=== PATIENT | female | born 1940 | race Caucasian/White ===

== ENCOUNTER 2017-08-14 11:30 | Outpatient (RCR) | payer MEDICARE, OTHER, SELFPAY ==
--- NOTE | 2017-07-31 12:52 | HP.PTEVAL ---
Patient's Visit Information DARRELL ROMERO is a 76 year old F referred to Physical Therapy by Kathy DALE with a diagnosis of Unstable gait. Date of Evaluation: 07/31/17 Physical Therapist: Russell Hillman DPT, OC - Visit Plan Frequency: 2x /Week Duration: 2-4 Weeks Plan: 2x/week for 2 weeks to. 1. STM B feet and ankles and stretch gastroc/PF(10 minutes). 2. teach gym based stregnth for LE adn posture and give list for I in 4 visits(pt to join gym and continue on own past that point.(20-30 minutes). Monitor pateints use of orthotics for foot pain. - Subjective Subjective: Monthly visits to Dr. Chong. Has noticed difficulty in walking due to pain/ache in bottom of B feet. was told she did not have plantarfasciitis. Feels like a bruise in the heels and weakness on steps. Has to use R foot now on steps. L leg is weaker. 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 Got orthotics which seem to have helped as arches need support. Sleeps alot in position in bed and started stretching feet and legs b/c first step in morning is always painful and tough. (Ankle ROM). Sleep is OK. Activities at home are pretty normal. Hobbies include swimming and she can do that . Always been very active. [place] and wants to be stronger. - Pain B heel pain Pain Intensity (Out of 10): 0 Pain Intensity Range: 0, 8 Comment: switches feet - Objective Walks with some antalgia and lacking push off L after sitting in weigthing room, smooths out as she walks further. Transfers I. steps require rail and L is functionally weak compared to right. No tenderness today in either foot or ankle. Mildly swollen L foot with edema. Ankle aROM is WFL except DF which is -3 degree actively and -1 passively B in gastroc, able to get to neutral with knee bent. Coordination in L ankle inv/ev slightly worse than right. knee and hip strength 4-/5 B. Pes planus noted L >R. Strength at ankle 4/5 B all directions. Metatarsals move well and without pain. Balance is good and without obvious deficits outside of L weakness on steps today. - Balance Scores Functional Gait Assessment Score: 26 % Disability: 13.3400 - Goals Goal 1:: I approp HEP to strengthen LE and maximize ROM Goal Time Frame: 2-4 Weeks Goal 2:: Achiness in feet 1/10 at worst and manageable for at least a week without antalgia Goal Time Frame: 2-4 Weeks - Rehabilitation Potential Physical Therapy Diagnosis: Foot pain and unstable gait/LE weakness Rehabilitation Potential: Fair - Anticipated Interventions Patient/Client Instruction: Educate patient on: Condition, Plan of Care For the Purpose of:: To decrease pain, To increase ROM, To improve gait and locomotor functions Therapeutic Exercise to Include: Strength training, Flexibilty training, Passive ROM, Active ROM For the Purpose of:: To decrease pain, To increase ROM, To improve gait and locomotor functions, To improve health of tissue Manual Therapy Techniques to Include: Soft tissue mobilization For the Purpose of:: To decrease pain Thank you for the opportunity to evaluate your patient. For Medicare and Medicare HMO plans, please review the plan of care and approve it. It will need to be FAXED BACK to us at [phone] for Medicare purposes. Please let me know if there are questions or concerns regarding this plan of care. Physician Signature: Date:
--- NOTE | 2017-08-14 12:22 | HP.PTDCSUM ---
HP - PT D/C Summary It has been my pleasure to treat DARRELL ROMERO under orders from DR.NHORN Gustavo for the diagnosis of Unstable gait for a total of 5 visit(s). Discharge Date: 08/14/17 Please see the following information for a summary of their discharge status. - Subjective Subjective: A lot better adn stronger. Discomfort is not nearly as bead. stretching at home in am. Plans to continue strength in gym. Leading with left legs going up steps still alittle weak. 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 - Pain B heel pain Pain Intensity (Out of 10): 0 - Overall Improvement % Improvement: 75 - Objective Objective/Function: No antalgia in gait, can walk on toes and heels without pain today. - Goals Goal 1:: I approp HEP to strengthen LE and maximize ROM Goal Progress: Goal Met Goal 2:: Achiness in feet 1/10 at worst and manageable for at least a week without antalgia Goal Progress: Progressing - Plan Plan: D/C to gym strength and home stretches. - D/C Information Discharge Comments: Pt doing much better. Less apin and ready to workout on her own. If there are questions or concerns regarding this patient's physical therapy, please feel free to call me at [phone]. Thank you for the referral of this patient. Sincerely, Russell Hillman, DPT, OC
== END 2017-08-14 19:00 | disposition home or self-care (01) ==
LOC: PT 11:30
PROVIDERS: Family Provider Family Medicine; PCP Family Medicine; Visit Provider Podiatrist
DX: R53.1 Weakness (principal); R26.89 Other abnormalities of gait and mobility
CPT/HCPCS: 97110; 97140; 97162; 97530

== ENCOUNTER → 2018-02-23 16:23 | Outpatient (CLI) | payer MEDICARE, OTHER, SELFPAY ==
--- NOTE | 2018-02-23 16:27 | RAD_ITS ---
STUDY: X-RAY - FACIAL BONES REASON FOR STUDY: Female, 77 years old. Fall. Bruising. Pain. TECHNIQUE: 3 view(s) of the facial bones. COMPARISON: None. FINDINGS: Normal bilateral frontozygomatic and zygomatic-temporal arches. Normal bilateral medial and inferior orbital blanca. Normal bilateral orbits. There is no demonstrated ?blow out? fracture of the orbits. Normal visualized nasal bones. Normal anterior nasal spine. The remaining visualized osseous structures are normal. There is no demonstrated fracture. Normal visualized paranasal sinuses. RAD/Facial Bones min 3 Views IMPRESSION: No definite fracture. Electronically Signed: Hoang Andujar MD at 18:56 EDT , Service support ,
--- NOTE | 2018-02-23 16:27 | RAD_ITS ---
STUDY: X-RAY - ORBITS REASON FOR EXAM: Female, 77 years old. TECHNIQUE: 5 view(s) of the orbits were obtained. COMPARISON: None. FINDINGS: Normal bilateral orbits without a metallic orbital foreign body. No definite facial fractures. Grossly normal bony orbits. Normal visualized facial bones. Normal paranasal sinuses. The soft tissue structures are unremarkable. RAD/Orbits Min 4 Views IMPRESSION: No definite fractures. Electronically Signed: Hoang Andujar MD at 18:58 EDT , Service support ,
== END ==
PROVIDERS: Family Provider Family Medicine; PCP Family Medicine; Referring Provider Family Medicine; Visit Provider Family Medicine
DX: S00.83XA Contusion of other part of head, initial encounter (principal); X58.XXXA Exposure to other specified factors, initial encounter; Y93.9 Activity, unspecified; Y92.9 Unspecified place or not applicable; Y99.9 Unspecified external cause status
CPT/HCPCS: 70150; 70200

== ENCOUNTER → 2018-04-23 10:10 | Outpatient (CLI) | payer MEDICARE, OTHER, SELFPAY ==
--- NOTE | 2018-04-23 10:13 | BI_ITS ---
MAMMOGRAPHY - BILATERAL SCREENING REASON FOR EXAM: Female, 77 years old. Routine annual screening examination. PERTINENT HISTORY: Mother with breast cancer. TECHNIQUE: Digital bilateral breast christo (3D mammographic acquisition) in the CC and MLO projections. 2-D mediolateral oblique (MLO) and craniocaudad (CC) views of both breasts were obtained. CAD: Full Field Digital Mammography with Computer Added Detection was performed. COMPARISON: Comparison is made with prior study dated January 27, 2017 and January 16, 2016. FINDINGS: Breast Composition: The breasts are almost entirely fatty. There are no dominant masses or suspicious calcifications. Stable small benign-appearing bilateral axillary lymph nodes. No other significant abnormalities are identified. There has been no significant change since the prior study. BI/SCREENING MAMM (CAD), BILAT IMPRESSION: Stable bilateral screening mammogram. Yearly follow-up mammogram recommended. (A) ASSESSMENT CATEGORY: BIRADS Category 2: Benign. A letter regarding these results will be sent to the patient by the facility within 30 days. Approximately 10% of breast cancers are not detected by mammography. A normal mammogram should not delay biopsy of a clinically suspicious abnormality. [id number] Electronically Signed: Kilo Calabrese MD at 13:04 EST Tel [phone], Service support ,
--- OUTSIDE RECORDS SUMMARY | 2018-06-09 04:16 | XMS RPT_ITS ---
:1940 Author Organization [facility] Care Team Providers Name Role Phone Kathy Chong Attending Unavailable Arlette, Kathy Referring Unavailable Manny, Susie Primary Care Unavailable Manny, Susie Attending Unavailable Jojse, Susie Referring Unavailable Petriff, Susie Primary Care Unavailable Jolliff, Susie Attending Unavailable Jolliff, Susie Primary Care Unavailable PROBLEMS PROBLEMS DATE TYPE CONDITION / CODE ATTENDING STATUS SOURCE 08/21/2017 Unknown R53.1 - Weakness Kathy Chong Active Lynn / R53.1(ICD-10) [facility] Repository PROCEDURES PROCEDURES No Procedure Records FoundRESULTS RESULTS SCREENING MAMM (CAD), Observed: 04/23/2018 Status: F Source: [place] B[place] 10:13 AM [facility] REPOSITORY [facility] Imaging Services [address] [place] [address] SCREENING MAMM (CAD), BILAT MR#: [id number] Acct: [id number] Name: DARRELL ROMERO Rep #: [id number] : 1940 F 77 From: Kilo Calabrese MD PCP: Susie Bryant MD Status: REG CLI Study: SCREENING MAMM (CAD), BILAT Date of Exam: 04/23/18 Exam# [id number] Ordering Dr: Susie Bryant MD MAMMOGRAPHY - BILATERAL SCREENING REASON FOR EXAM: Female, 77 years old. Routine annual screening examination. PERTINENT HISTORY: Mother with breast cancer. TECHNIQUE: Digital bilateral breast christo (3D mammographic acquisition) in the CC and MLO projections. 2-D mediolateral oblique (MLO) and craniocaudad (CC) views of both breasts were obtained. CAD: Full Field Digital Mammography with Computer Added Detection was performed. COMPARISON: Comparison is made with prior study dated January 27, 2017 and January 16, 2016. FINDINGS: Breast Composition: The breasts are almost entirely fatty. There are no dominant masses or suspicious calcifications. Stable small benign-appearing bilateral axillary lymph nodes. No other significant abnormalities are identified. There has been no significant change since the prior study. BI/SCREENING MAMM (CAD), BILAT IMPRESSION: Stable bilateral screening mammogram. Yearly follow-up mammogram recommended. (A) ASSESSMENT CATEGORY: BIRADS Category 2: Benign. A letter regarding these results will be sent to the patient by the facility within 30 days. Approximately 10% of breast cancers are not detected by mammography. A normal mammogram should not delay biopsy of a clinically suspicious abnormality. [id number] Electronically Signed: Kilo Calabrese MD at 13:04 EST Tel [phone], Service support , CC: Susie Bryant MD Obstetrical Anesthesiologist: Signed FACIAL BONES MIN 3 Observed: 02/23/2018 Status: F Source: [place] VIEWS 4:31 PM [facility] REPOSITORY [facility] Imaging Services [address] [place] [address] Facial Bones min 3 Views MR#: [id number] Acct: [id number] Name: DARRELL ROMERO Rep #: [id number] : 1940 F 77 From: Hoang Andujar MD PCP: Susie Bryant MD Status: REG CLI Study: Facial Bones min 3 Views Date of Exam: 02/23/18 Exam# [id number] Ordering Dr: Susie Bryant MD STUDY: X-RAY - FACIAL BONES REASON FOR STUDY: Female, 77 years old. Fall. Bruising. Pain. TECHNIQUE: 3 view(s) of the facial bones. COMPARISON: None. FINDINGS: Normal bilateral frontozygomatic and zygomatic-temporal arches. Normal bilateral medial and inferior orbital blanca. Normal bilateral orbits. There is no demonstrated ?blow out? fracture of the orbits. Normal visualized nasal bones. Normal anterior nasal spine. The remaining visualized osseous structures are normal. There is no demonstrated fracture. Normal visualized paranasal sinuses. RAD/Facial Bones min 3 Views IMPRESSION: No definite fracture. Electronically Signed: Hoang Andujar MD at 18:56 EDT , Service support , CC: Susie Bryant MD Obstetrical Anesthesiologist: Signed ORBITS MIN 4 VIEWS Observed: 02/23/2018 Status: F Source: [place] 4:31 PM [facility] REPOSITORY [facility] Imaging Services [address] [place] [id number] Orbits Min 4 Views MR#: [id number] Acct: [id number] Name: DARRELL ROMERO Rep #: [id number] : 1940 F 77 From: Hoang Andujar MD PCP: Susie Bryant MD Status: REG CLI Study: Orbits Min 4 Views Date of Exam: 02/23/18 Exam# [id number] Ordering Dr: Susie Bryant MD STUDY: X-RAY - ORBITS REASON FOR EXAM: Female, 77 years old. TECHNIQUE: 5 view(s) of the orbits were obtained. COMPARISON: None. FINDINGS: Normal bilateral orbits without a metallic orbital foreign body. No definite facial fractures. Grossly normal bony orbits. Normal visualized facial bones. Normal paranasal sinuses. The soft tissue structures are unremarkable. RAD/Orbits Min 4 Views IMPRESSION: No definite fractures. Electronically Signed: Hoang Andujar MD at 18:58 EDT , Service support , CC: Susie Bryant MD Obstetrical Anesthesiologist: Signed PT D/C SUMMARY (1) Observed: 08/15/2017 Status: F Source: [place] 6:52 AM [facility] REPOSITORY [facility] Physical [facility] [place] [address] Fax REHABILITATION SERVICES DISCHARGE SUMMARY MR#: [id number] Acct: [id number] Name: DARRELL ROMERO Rep #: [id number] : 1940 77 From: Russell Hillman DPT, OCS, CSCS Referring DrJese: Kathy Chong DPArminda Status: REG RCR Insurance: MEDICARE PART A B [employer] HP - PT D/C Summary It has been my pleasure to treat DARRELL ROMERO under orders from Kathy Chong DR.WVBHAVYA for the diagnosis of Unstable gait for a total of 5 visit(s). Discharge Date: 08/14/17 Please see the following information for a summary of their discharge status. - Subjective Subjective: A lot better adn stronger. Discomfort is not nearly as bead. stretching at home in am. Plans to continue strength in gym. Leading with left legs going up steps still alittle weak. 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 - Pain B heel pain Pain Intensity (Out of 10): 0 - Overall Improvement % Improvement: 75 - Objective Objective/Function: No antalgia in gait, can walk on toes and heels without pain today. - Goals Goal 1:: I approp HEP to strengthen LE and maximize ROM Goal Progress: Goal Met Goal 2:: Achiness in feet 1/10 at worst and manageable for at least a week without antalgia Goal Progress: Progressing - Plan Plan: D/C to gym strength and home stretches. - D/C Information Discharge Comments: Pt doing much better. Less apin and ready to workout on her own. If there are questions or concerns regarding this patient's physical therapy, please feel free to call me at [phone]. Thank you for the referral of this patient. Sincerely, Russell Hillman DPT, OC <Electronically signed by Russell Hillman DPT, JOSE, CSCS> 08/15/17 0652 CC: Susie Bryant MD; Kathy Chong DPM EBG Signed INITAL EVALUATION (1) Observed: 08/01/2017 Status: F Source: [place] - PT 6:47 AM [facility] REPOSITORY [facility] Physical [facility] [address] [place] [address] Fax REHABILITATION SERVICES INITIAL EVALUATION MR#: [id number] Acct: [id number] Name: DARRELL ROMERO Rep #: [id number] : 1940 76 From: JOSE Main DPT, CSCS Referring DrJese: Kathy Chong DPM Status: REG RCR Insurance: MEDICARE PART A B AUST. [facility] Patient's Visit Information DARRELL ROMERO is a 76 year old F referred to Physical Therapy by Kathy DALE with a diagnosis of Unstable gait. Date of Evaluation: 07/31/17 Physical Therapist: Russell Hillman DPT, OC - Visit Plan Frequency: 2x /Week Duration: 2-4 Weeks Plan: 2x/week for 2 weeks to. 1. STM B feet and ankles and stretch gastroc/PF(10 minutes). 2. teach gym based stregnth for LE adn posture and give list for I in 4 visits(pt to join gym and continue on own past that point.(20-30 minutes). Monitor pateints use of orthotics for foot pain. - Subjective Subjective: Monthly visits to Dr. Chong. Has noticed difficulty in walking due to pain/ache in bottom of B feet. was told she did not have plantarfasciitis. Feels like a bruise in the heels and weakness on steps. Has to use R foot now on steps. L leg is weaker. 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 Got orthotics which seem to have helped as arches need support. Sleeps alot in position in bed and started stretching feet and legs b/c first step in morning is always painful and tough. (Ankle ROM). Sleep is OK. Activities at home are pretty normal. Hobbies include swimming and she can do that . Always been very active. [place] and wants to be stronger. - Pain B heel pain Pain Intensity (Out of 10): 0 Pain Intensity Range: 0, 8 Comment: switches feet - Objective Walks with some antalgia and lacking push off L after sitting in weigthing room, smooths out as she walks further. Transfers I. steps require rail and L is functionally weak compared to right. No tenderness today in either foot or ankle. Mildly swollen L foot with edema. Ankle aROM is WFL except DF which is -3 degree actively and -1 passively B in gastroc, able to get to neutral with knee bent. Coordination in L ankle inv/ev slightly worse than right. knee and hip strength 4-/5 B. Pes planus noted L >R. Strength at ankle 4/5 B all directions. Metatarsals move well and without pain. Balance is good and without obvious deficits outside of L weakness on steps today. - Balance Scores Functional Gait Assessment Score: 26 % Disability: 13.3400 - Goals Goal 1:: I approp HEP to strengthen LE and maximize ROM Goal Time Frame: 2-4 Weeks Goal 2:: Achiness in feet 1/10 at worst and manageable for at least a week without antalgia Goal Time Frame: 2-4 Weeks - Rehabilitation Potential Physical Therapy Diagnosis: Foot pain and unstable gait/LE weakness Rehabilitation Potential: Fair - Anticipated Interventions Patient/Client Instruction: Educate patient on: Condition, Plan of Care For the Purpose of:: To decrease pain, To increase ROM, To improve gait and locomotor functions Therapeutic Exercise to Include: Strength training, Flexibilty training, Passive ROM, Active ROM For the Purpose of:: To decrease pain, To increase ROM, To improve gait and locomotor functions, To improve health of tissue Manual Therapy Techniques to Include: Soft tissue mobilization For the Purpose of:: To decrease pain Thank you for the opportunity to evaluate your patient. For Medicare and Medicare HMO plans, please review the plan of care and approve it. It will need to be FAXED BACK to us at [phone] for Medicare purposes. Please let me know if there are questions or concerns regarding this plan of care. Physician Signature: Date: <Electronically signed by Russell Hillman DPT, OCS, [facility]> 08/01/17 0647 CC: Susie Bryant MD; Kathy Chong DPM EBG Signed For Medicare only, by signing this I certify the plan of care. Physicians Signature Date ALLERGIES ALLERGIES DATE TYPE / CODE NAME / CODE REACTION SEVERITY SOURCE 07/30/2013 Drug No Known Unknown Lynn [facility] Allergy/4160 Allergies/F00 [facility] [address](SNOMED [id number](RXNOR Repository CT) M) ENCOUNTERS ENCOUNTERS ADMIT/DISCHARGE ACCOUNT ADMITTING ENCOUNTER LOCATION SOURCE NUMBER CLASS 04/23/2018 [id number] Ambulatory Lynn [place] 9 [facility] ing:OPBI Repository 02/23/2018 [id number] Ambulatory [place] 7 [facility] ing:MTRAD Repository 08/14/2017/ [id number] Ambulatory [place] Lynn 8 3 [facility] ing:PT Repository PAYERS PAYERS ENCOUNTER GUARANTOR PAYER SUBSCRIBER SOURCE 04/23/2018 DARRELL Barrow Primary DARRELL Melo [id number] Insurance:MEDICARE REMINGTONDOB: [facility] MAHAMEDHRBLANCA, PART A BPolicy [id number] [address]Auu: Number: Repository [id number] (HP) Date:2018-01-27 04/23/2018 Secondary DARRELL Barrow [place] Insurance:AULTCAREPol REMINGTONDOB: Community icy Number: [id number] [id number] Repository Date:[id number] [address] [address]UG: 04/23/2018 Tertiary NOT GIVENUNK Lynn Insurance:SELF PAY [facility] Number: Effective Repository Date:2018-01-27 02/23/2018 DARRELL J Primary DARRELL Barrow Lynn [id number] Insurance:MEDICARE REMINGTONDOB: Community SERRA STSHREVE, PART A [facility] [id number] [facility] [address]Uzk: Number: Repository [id number] (HP) Date:2018-02-23 02/23/2018 Secondary DARRELL Barrow Lynn Insurance:AULTCAREPol REMINGTONDOB: Community icy Number: [id number] [facility] [id number] Repository Date:[id number] [address] [address]MS: 02/23/2018 Tertiary NOT GIVENUNK [place] Insurance:SELF PAY [facility] Number: Effective Repository Date:2018-02-23 08/14/2017 Darrell J Primary Darrell Barrow Lynn [id number] Insurance:MEDICARE RemingtonDOB: Community [place] St[place], PART A [facility] [id number] [facility] [address]Xmi: Number: Repository [id number] (HP) Date:2004-07-10 08/14/2017 Secondary Darrell Barrow [place] Insurance:AULTCAREPol RemingtonDOB: Community icy Number: [id number] [facility] [id number] Repository Date:[id number] [facility] [address] [place] [id number]: 08/14/2017 Tertiary NOT GIVENUNK Lynn Insurance:SELF PAY [facility] Number: Effective Repository Date:2017-07-28
== END ==
PROVIDERS: Family Provider Family Medicine; PCP Family Medicine; Visit Provider Family Medicine
DX: Z12.31 Encounter for screening mammogram for malignant neoplasm of breast (principal)
CPT/HCPCS: 77063; 77067

== ENCOUNTER → 2018-07-17 08:25 | Outpatient (CLI) | payer MEDICARE, OTHER, SELFPAY ==
[2018-07-17 10:18] LABS: Anion Gap 6 (5-15); BUN 15 mg/dL (7-18); BUN/Creat Ratio 18.2 RATIO (10-20); Calcium,Total 8.8 mg/dL (8.5-10.1); Chloride 107 mmol/L (98-107); Cholesterol 174 mg/dL (200); Creatinine, Serum 0.82 mg/dL (0.55-1.02); EST Glomerular Filtration Rate 71 mL/min (>60); Est Glom Filt Rate - Afr Amer 86 mL/min (>60); Glucose 83 mg/dL (74-106); High Density Lipoprotein 46 mg/dL; Potassium 4.1 mmol/L (3.5-5.1); Sodium Level 141 mmol/L (136-145); Thyroid Stim Hormone (TSH) 0.38 uIU/mL (0.358-3.74); Triglycerides 102 mg/dL; Very Low Density Lipoprotein 20 mg/dL (5-40)
== END ==
PROVIDERS: Family Provider Family Medicine; PCP Family Medicine; Referring Provider Nurse Practitioner Family; Visit Provider Nurse Practitioner Family
DX: Z00.00 Encounter for general adult medical examination without abnormal findings (principal); E03.9 Hypothyroidism, unspecified
CPT/HCPCS: 36415; 80048; 80061; 84443

== ENCOUNTER 2018-11-15 20:00 | Emergency (ER) | payer MEDICARE, OTHER, SELFPAY ==
[2018-11-15 20:01] VITALS: BP 200/106; PULSE 81; RESP 16; TEMP 36.6; O2SAT 97; BMI 30.1
--- NOTE | 2018-11-15 20:56 | ED.DCSUM_ITS ---
- ER Visit Summary Date of Service: 11/15/18 Chief Complaint: [Allergic reaction to bee sting] History of Present Illness: The patient is a 78 F [this to the emergency department with a sting to her left index finger that occurred approximately 4:30 PM. Patient states that she reached into her mailbox and a wasp stung her on the left index finger. Patient states that the hand started to swell almost immediately. Patient and subsequently developed some funny sensations in her chest and feeling like she was not breathing quite right so she decided to come in and get evaluated. Patient states that she had itching to her waist and her hands. She denies any lip or tongue swelling. He has had no vomiting. She denies any dizziness. Patient states most of her symptoms resolved other than swelling in her left hand currently. Physical Examination: [HEGENESIS-PERRCRYSTAL, MARYMI. Cranial nerves II through XII grossly intact. TMs clear. Mucous membranes moist. No adenopathy. No angioedema of the lips, tongue, or oropharynx. Cardiovascular-regular rate and rhythm without murmur or ectopy Lungs-clear to auscultation, chest wall stable without crepitus or subcu emphysema Abdomen-normoactive bowel sounds, soft, nontender, no rebound or rigidity, no peritoneal signs. Extremities-intact ?4, normal range of motion, normal pulses, atraumatic. Left hand-patient has diffuse edema of the entire hand. Mild faint erythema to both hands noted. No significant rashes.] Test Results: [None indicated] Emergency Department Course and Treatment: [Patient given prednisone 40 mg p.o. as well as Benadryl 25 mg p.o.] Treatment Plan: [Will be given a prescription for prednisone for 3 days and also advised to ice and elevate the left hand. Patient use Benadryl as needed for itching.] Disposition: [Discharged home stable condition.] Impression: [Allergic reaction to wasp sting] This note was generated with [employer] dictation software. It may contain incorrect words, spelling, and punctuation that were not noted in review of the chart prior to signing ED Disposition - Plan for ED Patient: Referrals: Susie Bryant MD [Primary Care Provider] -
--- NOTE | 2018-11-15 20:59 | ED.DEP ---
ED Disposition - Plan for ED Patient: Instructions: ALLERGIC REACTION, Insect (General) Prescriptions: Prednisone [Deltasone] 20 mg PO BID #6 tab Prescription Printed Referrals: Susie Bryant MD [Primary Care Provider] - 3-5 Days
[2018-11-15] MEDS: DiphenhydrAMINE 25 MG Capsule PO (21:04)
[2018-11-15] MEDS: predniSONE 20 MG Tablet 40 MG PO (21:04)
== END 2018-11-15 21:07 | disposition home or self-care (01) ==
LOC: ED 20:58
PROVIDERS: Emergency Provider Emergency Medicine; Family Provider Family Medicine; PCP Family Medicine
DX: T63.441A Toxic effect of venom of bees, accidental (unintentional), initial encounter (principal); M79.89 Other specified soft tissue disorders; L29.9 Pruritus, unspecified; R06.00 Dyspnea, unspecified; Y92.008 Other place in unspecified non-institutional (private) residence as the place of occurrence of the external cause
CPT/HCPCS: 99283

== ENCOUNTER → 2019-05-14 14:20 | Outpatient (CLI) | payer MEDICARE, SELFPAY ==
[2019-04-16 08:58] VITALS: BMI 30.1
--- NOTE | 2019-05-14 14:25 | BI_ITS ---
MAMMOGRAPHY - BILATERAL SCREENING 3-D TOMOSYNTHESIS REASON FOR EXAM: Female, 78 years old. BILAT SCREENING - FAM HX OF MOTHER @ AGE 48 - NO PREV SURG''S - RT MOLES MARKED - PERTINENT HISTORY: No significant family history. TECHNIQUE: 2-D mammograms and 3-D Tomosynthesis of the breast (s) were performed. CAD was performed. COMPARISON: April 23, 2018. FINDINGS: The breast composition is almost entirely fat. Scattered benign calcifications are seen. No dense spiculated masses or suspicious microcalcifications are identified. No architectural distortion is identified. There is no skin thickening or retraction. There has been no significant change since the prior study. BI/SCREEN MAMM (CAD) W/FELIPE BILAT IMPRESSION: No mammographic signs of malignancy. Routine yearly mammograms recommended. ASSESSMENT CATEGORY: BIRADS Category 2: Benign. A letter regarding these results will be sent to the patient by the facility within 30 days. FOLLOW UP RECOMMENDATION: Yearly follow up mammogram recommended. (A) Approximately 10% of breast cancers are not detected by mammography. A normal mammogram should not delay biopsy of a clinically suspicious abnormality. Electronically Signed: Wolfgang Marti MD at 16:08 EST , Service support ,
== END ==
PROVIDERS: Family Provider Family Medicine; PCP Family Medicine; Referring Provider Family Medicine; Visit Provider Family Medicine
DX: Z12.31 Encounter for screening mammogram for malignant neoplasm of breast (principal)
CPT/HCPCS: 77063; 77067

== ENCOUNTER → 2019-09-14 10:18 | Outpatient (CLI) | payer MEDICARE, SELFPAY ==
[2019-04-16 08:58] VITALS: BMI 30.1
[2019-09-14 13:14] LABS: Anion Gap 5 (5-15); BUN 18 mg/dL (7-18); BUN/Creat Ratio 19.6 RATIO (10-20); Calcium,Total 9.4 mg/dL (8.5-10.1); Chloride 107 mmol/L (98-107); Cholesterol 177 mg/dL (200); Creatinine, Serum 0.92 mg/dL (0.55-1.02); EST Glomerular Filtration Rate 63 mL/min (>60); Est Glom Filt Rate - Afr Amer 76 mL/min (>60); Glucose 91 mg/dL (74-106); High Density Lipoprotein 45 mg/dL; Potassium 4.1 mmol/L (3.5-5.1); Sodium Level 141 mmol/L (136-145); T4 Total, Thyroxin 12.6 ug/dL (4.8-13.9); Thyroid Stim Hormone (TSH) 0.56 uIU/mL (0.358-3.74); Triglycerides 99 mg/dL; Very Low Density Lipoprotein 20 mg/dL (5-40)
== END ==
PROVIDERS: PCP Family Medicine; Visit Provider Family Medicine
DX: I10 Essential (primary) hypertension (principal); E03.9 Hypothyroidism, unspecified
CPT/HCPCS: 36415; 80048; 80061; 84436; 84443

== ENCOUNTER 2019-11-23 14:12 | Observation (INO) | payer MEDICARE, SELFPAY ==
[2019-04-16 08:58] VITALS: BMI 30.1
[2019-11-23] VITALS (11 sets, daily range): BP systolic 184–215; BP diastolic 82–103; PULSE 65–77; RESP 14–20; TEMP 36.4–36.8; O2SAT 96–99; BMI 29.3; BMI 30.1
--- NOTE | 2019-11-23 14:14 | CT_ITS ---
STUDY: CT BRAIN WITHOUT CONTRAST REASON FOR EXAM: Female, 79 years old. CVA RADIATION DOSAGE (If Supplied By Facility): CTDIvol = ( 44.99 ) mGy, DLP = ( 745.49 ) mGycm TECHNIQUE: Transaxial CT imaging of the brain was performed without administration of intravenous contrast material. Individualized dose optimization techniques were used for this CT. COMPARISON: No relevant priors. FINDINGS: Normal soft tissue structures. Normal calvarium. Normal size ventricles and extra-axial spaces for the patient''s age. Findings suggestive of old ischemic change in the posterior aspect of the left parietal occipital lobe. Normal basal ganglia and thalami. Normal brainstem. Normal cerebellum. There is no intracranial hemorrhage. There are no findings of an acute ischemic infarction. Atherosclerotic calcification of the vertebral arteries and cavernous portions of the internal carotid arteries bilaterally. Normal visualized paranasal sinuses. CT/Brain/Head without Contrast IMPRESSION: No acute abnormality is seen. N.B. : The above information has been verbally conveyed by Kilo Calabrese to LISA SARABIA MD, on 11/23/2019 14:26:26 (ET). Electronically Signed: Kilo Calabrese, at 14:27 EDT , Service support ,
--- NOTE | 2019-11-23 14:14 | EKG12_ITS ---
Test Reason : NEURO SX Blood Pressure : / mmHG Vent. Rate : 066 BPM Atrial Rate : 076 BPM P-R Int : 000 ms QRS Dur : 082 ms QT Int : 442 ms P-R-T Axes : 000 099 015 degrees QTc Int : 463 ms Atrial fibrillation Rightward axis Septal infarct , age undetermined Abnormal ECG Confirmed by ADOLPH VALERA, KENZIE ([id number]), non linear editor ZURI COOPER ([id number]) on 11/25/2019 9:39:21 AM Referred By: DC Confirmed By:KENZIE FARFAN MD
--- NOTE | 2019-11-23 14:15 | CT_ITS ---
STUDY: CTA HEAD AND NECK WITH CONTRAST REASON FOR EXAM: Female, 79 years old. STROKE RADIATION DOSAGE (If Supplied By Facility): CTDIvol = ( 19.44 ) mGy, DLP = ( 689.68 ) mGycm TECHNIQUE: CT angiography was performed with a multi-detector CT scanner. Data acquisition was obtained from the skull base through the vertex following intravenous administration of 100 CC ISOVUE 370. MIP images were reconstructed from the axial data set. Post-processing of the angiographic images was performed, with multiplanar reformation and 3D reconstruction. Individualized dose optimization techniques were used for this CT. COMPARISON: No relevant priors. FINDINGS: Normal bilateral petrous carotid arteries. There is calcified plaque formation of the right cavernous carotid artery, without a cross-sectional luminal stenosis. There is calcified plaque formation of the left cavernous carotid artery, without a cross-sectional luminal stenosis. Normal right A1 segments of the anterior cerebral artery. Normal left A1 segments of the anterior cerebral artery. Normal intact anterior communicating artery (ACOM). Normal bilateral A2 segments of the anterior cerebral arteries. Normal right M1 and M2 segments of the middle cerebral arteries, with a normal M1 bifurcation. Normal left M1 and M2 segments of the middle cerebral arteries, with a normal M1 bifurcation. Normal right posterior communicating artery (PCOM). Normal left posterior communicating artery (PCOM). Normal bilateral vertebral arteries. Normal basilar artery with a normal basilar bifurcation. The visualized bilateral superior cerebellar (SCA) arteries are normal. Normal bilateral P1, P2 and visualized P3 segments of the posterior cerebral arteries. There is no demonstrated aneurysm of the [place]. AORTIC ARCH: There is atherosclerotic calcific plaque formation of the aortic arch and great vessels arising from the aortic arch, without a hemodynamically significant stenosis. There is a normal origin of the brachiocephalic, left common carotid, and left subclavian arteries. Atherosclerotic plaque at the origin of the left subclavian artery. Inhomogeneous enlargement of the thyroid gland slightly more prominent on the left side with a substernal extension. RIGHT CAROTID ARTERIES: Normal right common carotid artery (CCA). Normal right common carotid bulb. There is mild atherosclerotic plaque formation of the origin of the right internal carotid artery with less than 50% cross sectional diameter stenosis. Normal visualized cervical portion of the right internal carotid artery. Normal origin of the right external carotid artery (ECA). LEFT CAROTID ARTERIES: Normal left common carotid artery (CCA). Normal left common carotid bulb. There is mild atherosclerotic plaque formation of the origin of the left internal carotid artery with less than 50% cross sectional diameter stenosis. Normal visualized cervical portion of the left internal carotid artery. Normal origin of the left external carotid artery (ECA). VERTEBRAL ARTERIES: There is enhancement within the bilateral vertebral arteries with a small right vertebral artery, and a dominant left vertebral artery. CT/CTA Head AND Neck W/ Contrast IMPRESSION: Calcific plaque at the origins of the right and left internal carotid arteries with less than 50% narrowing due to calcific plaques. Small right vertebral artery. N.B. : The above information has been verbally conveyed by Kilo Calabrese to LISA SARABIA MD, on 11/23/2019 14:34:19 (ET). Electronically Signed: Kilo Calabrese, at 14:34 EDT , Service support ,
--- NOTE | 2019-11-23 14:20 | CM.ED ---
Social Work Stroke Alert No family present. Patient currently in CT. Per nursing staff patient alert and oriented. Nursing staff to update this social worker delinquency prevention if any social work needs arise. Romeo Romero MSW, SELINA
[2019-11-23 14:23] LABS: Absolute Lymphocyte Count 2.84 X10^3/uL (0.83-4.51); Absolute Neutrophil Count 3.6 X10^3/uL (2.0-7.7); Basophil# 0.04 X10^3/uL; Basophil% 0.5 % (0-1); Eosinophil# 0.32 X10^3/uL; Eosinophils% 4.2 % (0-5); Hematocrit 46.7 % (37-47); Hemoglobin 14.3 g/dL (12.0-15.0); Lymphocyte # 2.84 X10^3/ul (4.0); Lymphocyte % 37.1 % (19-41); Mean Corp Hgb Conc 30.6 g/dL (32-36); Mean Corpuscular Hgb 24.2 pg (27.0-32.0); Mean Corpuscular Volume 78.9 fL (81-99); Monocyte# 0.87 X10^3/uL; Monocyte% 11.4 % (0-10); NRBC Flagged by Analyzer 0 % (0-5); Neutrophil # 3.56 X10^3/uL (2.7-7.7); Neutrophil % 46.4 % (47-70); POSITIVE MORPHOLOGY YES; Platelet Count 260 K/mm3 (150-450); RBC Distribution Width CV 20.7 % (11.6-14.6); RBC Distribution Width SD 56.6 fl (35.1-43.9); Red Blood Count 5.92 M/mm3 (4.2-5.4); White Blood Count 7.7 K/mm3 (4.4-11.0)
[2019-11-23 14:24] LABS: Differential Indicated SCAN CRITERIA MET
--- NOTE | 2019-11-23 14:31 | ED.DCSUM_ITS ---
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 Her last known well was at 1:30 PM. She states that she tried to get up out of the chair but was unable to. Never she was able to get up her left leg was dragging. She never had this happen before in the past. Upon arrival to the emerge department symptoms are starting to improve. Denies any headache, vision changes. No issues with word finding. No other extremity is affected. She denies any loss of sensation. No chest pain, shortness of breath. No recent illnesses including any fever/chills. Denies any abdominal pain or back pain. No history of stroke. She is not on anticoagulation. Past Medical History - Allergies and Home Meds Allergies/Adverse Reactions: Allergies No Known Allergies Allergy (Verified 11/23/19 14:31) Prior records reviewed: Yes Past Medical History: - - Hypothyroidism, hypertension Smoking Status: Former smoker Drugs: None - Family History Maternal Family History: Family History (Last Updated 04/16/19 @ 08:58 by Claudette Olvera) Mother Breast cancer Sister Lung cancer Review of Systems All systems negative except as indicated General: Denies: Chills, Fever, Sweats Eyes: Denies: Visual changes - bilaterally, Diplopia ENT: Denies: Rhinorrhea Cardiovascular: Denies: Chest pain, Palpitations Respiratory: Denies: Dyspnea, Cough, Dyspnea on exertion Gastrointestinal: Denies: Abdominal pain, Nausea, Vomiting, Diarrhea Genitourinary: Denies: Dysuria, Hematuria, Frequency Musculoskeletal: Denies: Back pain, Extremity Pain Skin: Denies: Rash, Wounds Neurological: Reports: Weakness - Left leg. Denies: Headache, Numbness Physical Exam Vital Signs/Narrative: Vital Signs Temp Pulse Resp BP Pulse Ox 11/23/19 14:28 98.3 F 73 18 215/92 H 97 Inital Vital Signs reviewed: Yes - Hypertensive General: Well nourished, Well developed, No Acute Distress Head: Normocephalic, Atraumatic Eyes: Perrl, EOMI ENT: Moist mucous membranes, No rhinorrhea Neck: Supple, Nontender Cardiovascular: Regular rate, Regular rhythm, No murmurs Respiratory: No distress, CTA bilaterally, Chest nontender Abdomen: Soft, Nontender, Nondistended, Normal bowel sounds Back: Nontender, Normal Inspection Extremities: Nontender, No edema Skin: Normal color, No rash Neurological: Alert, Oriented x3, Cranial nerves II-XII grossly intact, Normal Strength, Normal Sensation, - - Initial NIH upon arrival to the emergency department is 0. Full muscle strength in all extremities. No loss of sensation. No discoordination. No issues with speech. No issues with vision.. Negative for: Left side facial droop, Right side facial droop Psychological: Normal affect, Normal Mood Diagnostic/Tx/Re-eval - Medical Decision Making Patient presents to the emergency department as a prehospital stroke alert. She had left leg weakness. This has since resolved upon arrival to the ED. Imaging being obtained to evaluate for acute CVA. Patient's NIH upon arrival is 0. She is not a TPA candidate due to having no focal neurological deficit at this time. CT scans did not show any evidence of acute CVA. No large vessel occlusion. Will bring to the hospital for further evaluation and management. Patient given aspirin down in the emergency department. Lab work did not show any significant acute abnormality. She does have a mild hyperglycemia. She is having some hypertensive episodes. Will monitor. She otherwise has been stable throughout emerge department stay. She is agreeable with this plan. ED Disposition - Plan for ED Patient: Disposition: [facility] Diagnosis: TIA (transient ischemic attack), Lower extremity weakness
[2019-11-23 14:32] LABS: Prothrombin Time (Protime)PT. 13.1 SECONDS (11.7-14.9)
[2019-11-23 14:33] LABS: Partial Thromboplast Time 26.4 Seconds (24.1-36.2)
--- NOTE | 2019-11-23 14:38 | CHAPLAIN ---
Type of Pastoral Visit ___ Initial Visit ___ Follow-up Visit ___ On-call Visit ___ General Patient Visit ___ Spiritual Assessment ___ Family Conference ___ Bereavement _x__ Rapid Response ___ Code Blue ___ Other (describe below) Pastoral Care Referral From ___ Patient ___ Family ___ Nurse ___ Physician ___ Search Engine Optimization Consultant ___ Clinical Research Scientist _x__ Other (describe below) Sacrament/Intervention ___ Active listening ___ Anointing ___ Tenriism ___ Bereavement ___ Communion ___ Tari exploration ___ ___ Life review ___ Prayer ___ Reconciliation ___ Sacrament of Sick ___ Supportive presence ___ Wedding _x__ Other (describe below) Pastoral Comments responded to stroke alert in ED; pt was already taken to CT; no family is present; staff indicate pt is alert and talking; SW was on scene and present for support; did not wait further
[2019-11-23 14:40] LABS: Anion Gap 6 (5-15); BUN 21 mg/dL (7-18); BUN/Creat Ratio 19.1 RATIO (10-20); Calcium,Total 9.5 mg/dL (8.5-10.1); Chloride 108 mmol/L (98-107); EST Glomerular Filtration Rate 51 mL/min (>60); Est Glom Filt Rate - Afr Amer 61 mL/min (>60); Estimated Creatinine Clearance 33.74 ml/min; Glucose 160 mg/dL (74-106); Potassium 3.6 mmol/L (3.5-5.1); Sodium Level 141 mmol/L (136-145)
[2019-11-23 14:51] LABS: Anisocytosis 1+; Macrocytosis RARE; Microcytosis RARE; Platelet Estimate ADEQUATE (ADEQ)
[2019-11-23] MEDS: Aspirin 325 MG Tablet PO (14:57)
--- NOTE | 2019-11-23 15:01 | RAD_ITS ---
STUDY: X-RAY CHEST REASON FOR EXAM: Female, 79 years old. Was sitting outside, daughter was in kitchen and heard pt yelling. Could not move left leg and also had left arm weakness. Last known well was 1320. Daughter reports had delay in speech at home, none now. TECHNIQUE: Single AP portable view of the chest. COMPARISON: None. FINDINGS: EKG electrodes are seen. Elevation of the right hemidiaphragm. The lungs are clear. There is no demonstrated pleural abnormality. There is mild cardiac enlargement. Normal mediastinum and felix. Normal visualized pulmonary arteries. There is atherosclerotic calcification of the aortic arch with tortuosity. Normal visualized thoracic spine. Normal visualized ribs, clavicles, and shoulders. There is no demonstrated abnormality of the visualized soft tissue structures of the upper abdomen. RAD/Chest 1 View IMPRESSION: No acute abnormality is seen. Mild cardiomegaly. Electronically Signed: Kilo Calabrese, at 15:33 EDT , Service support ,
--- NOTE | 2019-11-23 15:03 | HP.PCM_ITS ---
History of Present Illness Date of Admission: 11/23/19 Chief Complaint: left leg weakness The patient is a 79 year old F Was admitted through the ED on 11/23/2019 with a complaint of left lower extremity weakness. 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 She went grocery shopping at [facility] today and went and was sitting on her deck outside. She subsequently thought she had been in the sun too much and was getting up to go inside to enjoy the shade. However she realized that she was too weak to get up. After she grabbed the armrest to left herself up, she realized could not support herself on her left leg as it was weak and floppy. She also noticed that she could not keep her arms elevated for long as her left arm will suddenly drop down. She called her daughter who recommended that they called the squad because of concerns about a stroke. By the time the squad brought her to the hospital, patient symptoms are completely resolved. She says she is never experienced such symptoms before but 2 weeks ago she noticed that she was having some episodes of confusion and dizziness which apparently resolved. She denied any fever or chills, palpitations or dizziness, nausea vomiting or diarrhea. He states that about 8 years ago, when she went on holiday at [facility] in [place], she was sent to the hospital and told that she had a murmur. On account of this murmur, she was put on metoprolol 50 mg daily which she has been taking since. She denies any history of A. fib. Review of signs otherwise negative. In the ED, patient's vitals were significant for temperature of 98.3 with blood pressure of 214/82 and pulse rate of 73 as well as respiratory rate of 19. Pulse ox was 98% on room air. Chemistry was only significant for creatinine of 1.10 on initial troponin was negative. CBC showed hemoglobin of 14.3 with WBC of 7.7 and platelets of 360. EKG done showed A. fib with rate control and CT of the brain showed no acute intracranial abnormality. This x-ray also showed no acute cardiopulmonary process and only showed mild cardiomegaly. CTA of the head and neck showed a calcified plaque at the origins of the right and left internal carotid arteries with less than 50% narrowing due to calcified plaques and small right vertebral artery. She has been admitted to be managed for TIA. [] Past Medical History Medical History: Medical History (Last Updated 04/16/19 @ 08:56 by Claudette Olvera) Incontinence R32 HTN (hypertension) I10 Allergies No Known Allergies Allergy (Verified 11/23/19 14:31) Home Medications: Ambulatory Orders Medication Instructions Recorded Aspirin [Aspirin, Baby] 81 mg PO DAILY@0800 07/30/13 Levothyroxine [Synthroid] 125 mcg PO DAILY 07/30/13 Losartan Potassium [Cozaar] 50 mg PO DAILY 07/30/13 Metoprolol(XL)Succ [Toprol Xl] 50 mg PO DAILY 07/30/13 Surgical History: Surgical History (Last Updated 04/16/19 @ 08:56 by Claudette Olvera) History of cholecystectomy Z90.49 History of hysterectomy Z90.710 Surgical History: no surgical history Psychiatric History: No pertinent psych hx [employer] 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 Lives: Alone Smoking Status: Former smoker Alcohol: None Drugs: None - *Family History Maternal Family History: Family History (Last Updated 04/16/19 @ 08:58 by Claudette Olvera) Mother Breast cancer Sister Lung cancer Review of Systems Constitutional: Denies: Chills, Fever, Malaise, Weakness, Weight Change, Fatigue Eyes: Denies: Blurred vision HEENT: Denies: Head Aches, Sinus Congestion, Sinus Drainage Cardiovascular: Denies: Chest Pain, Light Headedness, Palpitations Respiratory: Denies: Cough, Shortness of Breath, Shortness of breath at rest, Shortness of breath upon exertion, Sputum production Gastrointestinal: Denies: Abdominal Pain, Nausea, Vomiting Genitourinary: Denies: Dysuria Musculoskeletal: Denies: Joint Pain, Joint Tenderness Skin: Denies: Rash, Wounds Neurological: Reports: Balance problems, Focal weakness. Denies: Slurred speech, Confusion, Difficulty swallowing, Headaches, Numbness, Tingling Psychiatric: Denies: Anxiety, Depression, Homicidal Ideations, Suicidal Ideations Hematologic/ Lymphatic: Denies: Easy Bruising, Easy Bleeding VTE Information - Inpt Only VTE Present on Admission: No VTE Pharm Prophylaxis ordered?: Yes - Physical Exam Vitals/I&O's: Vital Signs Temp Pulse Resp BP Pulse Ox 98.3 F 77 18 207/87 H 97 11/23/19 14:28 11/23/19 14:44 11/23/19 14:44 11/23/19 14:44 11/23/19 14:44 Oxygen Delivery Method Room Air Weight: 169 lb 12.095 oz Body Mass Index (BMI) 30.0 Finger Stick Blood Glucose 160 General: Alert, Oriented x3, Cooperative, No apparent distress HEENT: Atraumatic, PERRLA, EOMI, Normocephalic Oral: Moist Mucosa Neck: Supple, No JVD, Negative Carotid Bruits Lungs: Clear to auscultation, Normal air movement, No rhonchi, No wheeze, No rales Cardiovascular: No murmurs, Irregular Rate - afib, rate controlled Abdomen: Bowel Sounds Present, Soft, Non Tender, Non-Distended, No Hepato- splenomegaly Extremities: No clubbing, No cyanosis, No edema, Capillary Refill Less than 3 Seconds Skin: No rashes, No breakdown Musculoskeletal: No Tenderness to Palpation of Joints or Extremities Lymphatic: No Cervical, Supraclavicular, or Inguinal Adenopathy Neurological: Cranial nerves II-XII grossly intact, Neuro grossly intact, Motor Exam 5/5 strength throughout, - - NIHSS-0 Psych/Mental Status: Normal Affect, Appropriate, Alert and oriented to time, place, person, mood and affect Laboratory Results 11/23/19 13:50: WBC 7.7, RBC 5.92 H, Hgb 14.3, Hct 46.7, MCV 78.9 L, MCH 24.2 L, MCHC 30.6 L, RDW Std Deviation 56.6 H, RDW Coeff of Aiden 20.7 H, Plt Count 260, MPV 10.0, Immature Gran % (Auto) 0.400, Neut % (Auto) 46.4 L, Lymph % (Auto) 37.1, [place] % (Auto) 11.4 H, Eos % (Auto) 4.2, Baso % (Auto) 0.5, Absolute Neuts (auto) 3.6, Absolute Lymphs (auto) 2.84, Nucleated RBC % 0, Platelet Estimate ADEQUATE, Anisocytosis 1+, Microcytosis RARE, Macrocytosis RARE 11/23/19 13:50: PT 13.1, INR 1.0, APTT 26.4 11/23/19 13:50: Sodium 141, Potassium 3.6, Chloride 108 H, Carbon Dioxide 27.0, Anion Gap 6, BUN 21 H, Creatinine 1.10 H, Estim Creat Clear Calc 33.74, Est GFR (MDRD) Af Amer 61, Est GFR (MDRD) Non-Af 51 L, BUN/Creatinine Ratio 19.1, Glucose 160 H, Calcium 9.5, Troponin I < 0.[address] 11/23/19 14:14 IMPRESSION: No acute abnormality is seen. N.B. : The above information has been verbally conveyed by Kilo Calabrese to LISA SARABIA MD, on 11/23/2019 14:26:26 (ET). Electronically Signed: Kilo Calabrese, at 14:27 EDT , Service support , ADDENDUM: 11/23/19 1434 IMPRESSION: No acute abnormality is seen. N.B. : The above information has been verbally conveyed by Kilo Calabrese to LISA SARABIA MD, on 11/23/2019 14:26:26 (ET). Electronically Signed: Kilo Calabrese, at 14:27 EDT , Service support , Head/Neck CTA 11/23/19 14:15 IMPRESSION: Calcific plaque at the origins of the right and left internal carotid arteries with less than 50% narrowing due to calcific plaques. Small right vertebral artery. N.B. : The above information has been verbally conveyed by Kilo Calabrese to LISA SARABIA MD, on 11/23/2019 14:34:19 (ET). Electronically Signed: Kilo Calabrese, at 14:34 EDT , Service support , ADDENDUM: 11/23/19 1441 IMPRESSION: Calcific plaque at the origins of the right and left internal carotid arteries with less than 50% narrowing due to calcific plaques. Small right vertebral artery. N.B. : The above information has been verbally conveyed by Kilo Calabrese to LISA ASRABIA MD, on 11/23/2019 14:34:19 (ET). Electronically Signed: Kilo Guanakito, at 14:34 EDT , Service support , Chest X-Ray 11/23/19 15:01 IMPRESSION: No acute abnormality is seen. Mild cardiomegaly. Electronically Signed: Kilo Guanakito, at 15:33 EDT , Service support , Assessment/Plan All Active Problems (Last Updated 04/16/19 @ 08:56 by Claudette Olvera) Acute bronchitis (Acute) 79 y/o admitted with a complaint of weakness of her LLE and LUE which had resolved at time of presentation 1. TIA * CT of the brain showed no acute intracranial process and CTA of the head and neck showed calcified plaque at the origins of the right and left internal carotid arteries with less than 50% narrowing due to calcified plaques and a small vertebral artery on the right * Symptoms had fully resolved by time of presentation and NIH stroke scale is 0. * Admit to PCU with telemetry * EKG done showed A. fib. Patient states is on metoprolol 50 mg daily and has been for about 8 years due to heart murmur. She does not know exactly what heart murmur she had and denies ever knowing that she had A. fib. * Will get 2D echo. Check lipid panel. * For MRI of the brain tomorrow and 2D echo. * PT OT consults. * Fall precautions. * 2. Afib * As under 1. Currently rate controlled. * Metoprolol, will continue. * CHADVASC score is 6 * will start on eliquis; has no previous history of GI bleed * 2D echo ordered for tomorrow * will need follow up with GI * check TSH 3. Hypothyroidism * On Synthroid. Will check TSH. 4. Hypertension * On losartan and metoprolol. Blood pressure is markedly elevated at 214/82 at time of presentation. * Will give IV hydralazine and resume medication. Goal is for blood pressure of less than 06/10/1980 stroke is ruled out. * DVT prophylaxis: being started on eliquis o/a of afib and high CHADVASC score Note: * patient requested to be admitted under inpatient status; explained to her that per her presentation, she did not meet criteria for inpatient status and so will be admitted under observation status. * Patient was not happy about this as she was concerned about the financial ramifications of being admitted under observation status, but was understanding when I explained to her that she didnt meet inpatient criteria with her current presentation * CODE STATUS: DNRCCA * Patient counseled extensively about different types of CODE STATUS including full code, DNR CCA and DNR CCA. Patient elects to be DNRCCA. * Total hbsm-wx-avlu time 16 minutes. OBSV E&M: 25789 Initial observation care L2 Procedures: 14287 Advncd Care Plan 30 Min
--- NOTE | 2019-11-23 15:48 | NURSING ---
[facility]
[2019-11-23] MEDS: hydrALAZINE 20 MG/ML Vial 10 MG IV (16:16)
--- NOTE | 2019-11-23 16:45 | MRI_ITS ---
We are attempting to reach an attending provider to discuss findings. An addendum with communication details will be sent when the communication is complete. STUDY: MRI BRAIN WITHOUT CONTRAST REASON FOR EXAM: Female, 79 years old. LLE weakness,slurred speech, ataxia. LEFT arm dysfunction TECHNIQUE: Standardized multiplanar fat and water weighted pulse sequences were obtained. COMPARISON: Head CT dated November 23, 2019 FINDINGS: A small acute infarct is present in the chatman radiata region of the right parietal lobe. No additional acute infarcts are seen. There is mild cerebral atrophy with widening of the extra-axial spaces and ventricular dilatation. There are a limited number of small white matter hyperintensities, distributed throughout the deep white matter tracts of the cerebral hemispheres, consistent with mild chronic white matter ischemic changes. Normal T2* images of the brain without demonstrated susceptibility artifact. There is no demonstrated hemosiderin stain. Normal bilateral basal ganglia. Normal thalami. There is no extra-axial fluid accumulation. Normal flow voids within the major intracranial circulation suggesting patency by spin echo criteria. Normal sella turcica, pituitary gland, infundibular stalk, optic chiasm and hypothalamus. Normal tectal plate and pineal gland. Normal midbrain, whitley and medulla. Normal cerebellum. Normal basal cisterns. Normal bilateral temporal bones. Normal bilateral internal auditory canals. No demonstrated orbital abnormality, within the constraints of a routine brain study. Normal visualized paranasal sinuses. Normal calvarium and skull base. Normal visualized soft tissue structures. Normal visualized upper cervical spine. MRI/Brain without Contrast IMPRESSION: 1. Small acute infarct is present in the chatman radiata region of the right parietal lobe. 2. Involutional changes of the brain, as described above. Electronically Signed: Dejan Adams MD at 19:06 EDT , Service support ,
[2019-11-23] MEDS: LORazepam 2 MG/ML Syringe 0.5 MG IV (17:49)
[2019-11-23] MEDS: 0.9% Saline Lock 10 ML Syringe IV (17:49)
[2019-11-23 18:04] LABS: Hemoglobin A1c 5.6 % (3.8-5.6)
[2019-11-23 18:04] LABS: Cholesterol 195 mg/dL (200); High Density Lipoprotein 43 mg/dL; Thyroid Stim Hormone (TSH) 0.43 uIU/mL (0.358-3.74); Triglycerides 124 mg/dL; Very Low Density Lipoprotein 25 mg/dL (5-40)
[2019-11-23] MEDS: APIXABAN 2.5 MG TABLET PO ×2 (18:49→22:08)
[2019-11-23] MEDS: Clopidogrel Bisulfate 75 MG Tablet PO (22:04)
[2019-11-23] MEDS: Atorvastatin Calcium 40 MG Tablet PO (22:09)
--- NOTE | 2019-11-23 22:50 | NURSING ---
SOC physician consult taking place in room at this time.
[2019-11-24] VITALS (8 sets, daily range): BP systolic 155–195; BP diastolic 80–95; PULSE 55–80; RESP 12–18; TEMP 36.6–37; O2SAT 96–100; BMI 29.3
[2019-11-24 05:09] LABS: Absolute Lymphocyte Count 2.32 X10^3/uL (0.83-4.51); Absolute Neutrophil Count 4.3 X10^3/uL (2.0-7.7); Basophil# 0.05 X10^3/uL; Basophil% 0.6 % (0-1); Eosinophils% 4.7 % (0-5); Hematocrit 45.3 % (37-47); Hemoglobin 13.8 g/dL (12.0-15.0); Lymphocyte # 2.32 X10^3/ul (4.0); Lymphocyte % 27.5 % (19-41); Mean Corp Hgb Conc 30.5 g/dL (32-36); Mean Corpuscular Hgb 24.3 pg (27.0-32.0); Mean Corpuscular Volume 79.8 fL (81-99); Mean Platelet Vol. 9.6 fl (6.2-12.0); Monocyte# 1.32 X10^3/uL; Monocyte% 15.6 % (0-10); NRBC Flagged by Analyzer 0 % (0-5); Neutrophil # 4.34 X10^3/uL (2.7-7.7); Neutrophil % 51.4 % (47-70); POSITIVE MORPHOLOGY YES; Platelet Count 227 K/mm3 (150-450); RBC Distribution Width CV 21.5 % (11.6-14.6); RBC Distribution Width SD 58.7 fl (35.1-43.9); Red Blood Count 5.68 M/mm3 (4.2-5.4); White Blood Count 8.5 K/mm3 (4.4-11.0)
[2019-11-24 05:10] LABS: Differential Indicated SCAN CRITERIA MET
[2019-11-24 05:26] LABS: Anion Gap 7 (5-15); BUN 16 mg/dL (7-18); BUN/Creat Ratio 17.5 RATIO (10-20); Chloride 108 mmol/L (98-107); Cholesterol 174 mg/dL (200); Creatinine, Serum 0.92 mg/dL (0.55-1.02); EST Glomerular Filtration Rate 63 mL/min (>60); Est Glom Filt Rate - Afr Amer 76 mL/min (>60); Estimated Creatinine Clearance 40.34 ml/min; Glucose 99 mg/dL (74-106); High Density Lipoprotein 40 mg/dL; Potassium 3.7 mmol/L (3.5-5.1); Sodium Level 142 mmol/L (136-145); Triglycerides 77 mg/dL; Very Low Density Lipoprotein 15 mg/dL (5-40)
[2019-11-24] MEDS: Levothyroxine 125 MCG Tablet PO (05:29)
[2019-11-24 05:32] LABS: Differential Comment SCANNED; Hypochromasia RARE; Stomatocyte RARE; Target Cells RARE
--- NOTE | 2019-11-24 07:00 | ECHOD_ITS ---
Reason For Study: TIA/CVA Procedure This was a 2D Doppler, Color Flow transthoracic echocardiogram. Exam performed portable in patient room. Left Ventricle Normal LV size. Mild concentric left ventricular hypertrophy. The estimated ejection fraction is 65 %. No regional wall motion abnormalities noted. Right Ventricle Normal RV size. Normal systolic function. Atria The left atrium is moderately enlarged. Normal right atrium. Bubble contrast study negative for right to left interatrial shunt. Mitral Valve There is mild to moderate mitral annular calcification. Mild (1+) eccentric mitral valve insufficiency. Tricuspid Valve Normal tricuspid valve. Trivial tricuspid valve insufficiency. Aortic Valve Trisinus/trileaflet aortic valve. Mild focal aortic valve calcification. Trivial aortic valve insufficiency. Pulmonic Valve Normal pulmonic valve. Great Vessels Normal aortic root. The pulmonary artery is normal size. Normal inferior vena cava. Pericardium/Pleural No pericardial effusion. Medication Performed a rapid injection of agitated mix of 9 cc saline and 1cc air to assess for atrial septal defect. MMode/2D Measurements & Calculations LVIDd: 4.3 cm IVSd: 1.1 cm Ao root diam: 2.7 cm LVIDs: 2.8 cm LVPWd: 1.1 cm RVDd: 2.5 cm FS: 35.1 % LAV(MOD-bp): 100.1 ml LA A4 area: 28.0 cm2 LA dimension(2D): 4.4 cm LAV(MOD-bp) Indexed: 56.2 ml/m2 LAV(MOD-sp2): 81.5 ml LAV(MOD-sp4): 99.0 ml RA A4 area: 20.9 cm2 Time Measurements MV dec time: 0.16 sec Doppler Measurements & Calculations MV E max brian: 136.8 cm/sec Ao V2 max: 141.7 cm/sec LV V1 max: 74.7 cm/sec MV A max brian: 37.3 cm/sec Ao max P.1 mmHg LV V1 max P.2 mmHg MV E/A: 3.7 PA V2 max: 74.6 cm/sec TR max brian: 293.6 cm/sec TR max P.5 mmHg Interpretation Summary Normal LV size. Mild concentric left ventricular hypertrophy. The estimated ejection fraction is 65 %. The left atrium is moderately enlarged. Bubble contrast study negative for right to left interatrial shunt. There is mild to moderate mitral annular calcification. Mild (1+) eccentric mitral valve insufficiency. Ordering Physician: Kat Velazquez Referring Physician: Susie Bryant Performed By: Kym Castle, HARESH, RVT
[2019-11-24] MEDS: Metoprolol(XL)Succ 50 MG Tablet PO (09:36)
[2019-11-24] MEDS: Losartan Potassium 50 MG Tablet PO (09:36)
[2019-11-24] MEDS: APIXABAN 2.5 MG TABLET PO (09:36)
--- NOTE | 2019-11-24 09:36 | CASEMGMT ---
SW completed a PHQ 9 with patient as she had a Stroke or TIA. She scored a 0 which indicates no depression. Neris MARKS MSW
--- NOTE | 2019-11-24 11:20 | CASEMGMT ---
Dr Ruffin called Eliquis into pt's pharmacy and states pt's co-pay is over $200/month at this time. Pt updated by Dr. Ruffin and provided with Eliquis 30 day free trial card at this time. Linda BOUCHER CM
--- NOTE | 2019-11-24 13:05 | DCINST_ITS ---
- Discharge Diagnoses Current Active Problems: Current Active and Chronic Problems (Last Updated 04/16/19 @ 08:56 by Claudette Olvera) TIA (transient ischemic attack) (Acute) Lower extremity weakness (Acute) You will use the following diet at home:: No restrictions Your food should be the consistency of: Regular Your liquids should be the consistency of: Regular/Thin Discharge Activity: Return to Normal Activity Additional Instructions: no aspirin use, Alleve use or Ibuprofen use. any sign of abnormal bleeding in urine, stool, or elseware call your physician Allergies/Adverse Reactions: Allergies No Known Allergies Allergy (Verified 11/23/19 14:31) Medications to take at Discharge Levothyroxine [Synthroid] 125 mcg PO DAILY 07/30/13 Losartan Potassium [Cozaar] 50 mg PO DAILY 07/30/13 Metoprolol(XL)Succ [Toprol Xl (Beta Hilary)] 50 mg PO DAILY 07/30/13 Apixaban [Eliquis] 5 mg PO BID #60 tab 11/24/19 Atorvastatin Calcium [Lipitor] 40 mg PO DAILY #30 tab 11/24/19 Clopidogrel Bisulfate [Plavix] 75 mg PO DAILY #30 tab 11/24/19 The following prescriptions were given: Apixaban [Eliquis] 5 mg PO BID #60 tab Atorvastatin Calcium [Lipitor] 40 mg PO DAILY #30 tab Clopidogrel Bisulfate [Plavix] 75 mg PO DAILY #30 tab Primary Care Physician: Susie Bryant MD [Primary Care Provider] - Please follow up with your Primary Care Physician in: in the next 7 days Test Results: Test results from this visit will be discussed in further detail at your follow- up appointment, if applicable. Please Follow Up With: Bubba Hairston MD When: as directed
--- NOTE | 2019-11-24 14:46 | PHA.DC.MC ---
Pharmacy Service has performed discharge medication reconciliation and counseling for this patient. 1. APIXABAN 5MG PO BID 2. ATORVASTATIN 40MG PO DAILY 3. CLOPIDOGREL 75MG PO DAILY The patient's discharge medication list was reviewed for discrepancies and discrepancies were resolved. Home Medications Levothyroxine [Synthroid] 125 mcg PO DAILY 07/30/13 Losartan Potassium [Cozaar] 50 mg PO DAILY 07/30/13 Metoprolol(XL)Succ [Toprol Xl (Beta Hilary)] 50 mg PO DAILY 07/30/13 Apixaban [Eliquis] 5 mg PO BID #60 tab 11/24/19 Atorvastatin Calcium [Lipitor] 40 mg PO DAILY #30 tab 11/24/19 Clopidogrel Bisulfate [Plavix] 75 mg PO DAILY #30 tab 11/24/19 The patient was counseled on the following discharge medications and changes in medications for homegoing were reviewed. The Reason for Use, instructions for use, and potential side effects were reviewed for all new medications. The patient's questions regarding all of their medications were answered. The patient was able to verbally demonstrate an understanding of their discharge medications. Patient counseled by pharmacy resource tech, Raj
--- NOTE | 2019-11-25 08:43 | DS.PCM_ITS ---
Discharge Date and Diagnosis Date of Admission: 11/23/19 Date of Discharge: 11/24/19 - Primary Discharge Diagnosis Acute Problems: #1 acute ischemic stroke chatman radiata region of the right parietal lobe #2 new onset atrial fibrillation #3 Essential hypertension #4 hypothyroidism Hospital Course and Treatment Operations: None Procedures: 2-D Echocardiogram Summary of Care Provided: The patient is a 79 year old F was seen in the emergency room at [facility] with a chief complaint of left leg weakness. She denied any speech or visual disturbances. NIH score when the patient presented to the emergency room was 0. Patient was felt not to be a TPA candidate due to the fact she was not having any focal neurological deficits. CT scan of the brain was performed which showed no acute CVA, head and neck CTA was unremarkable. Patient was noted to be hypertensive. Upon examination by the hospitalist, it was noted that the patient was in atrial fibrillation which was a new rhythm for the patient. Patient was placed in observation status on PCU, neurologic consultation via tele-neurology was performed, it was recommended the patient be placed on Plavix and Eliquis, echocardiogram was performed which showed no abnormalities. I contacted cardiology for the patient to follow-up with Dr. Hairston as an outpatient. Patient was seen by PT, OT, and speech therapy who did not feel that the patient needed any outpatient therapy. On 11/24/2019, patient was seen and examined: On examination she appeared in good health and spirits, she does not appear to be in any distress. Vital signs as documented. Skin warm and dry and without overt rashes. Neck without JVD, thyroid appears normal, trachea is midline, neck is supple. Lungs clear, normal air movement was noted. Heart exam notable for regular rhythm, normal sounds and absence of murmurs, rubs or gallops. Abdomen unremarkable and without evidence of organomegaly, masses, or abdominal aortic enlargement, bowel sounds are present in all 4 quadrants, no abdominal tenderness was noted. Extremities nonedematous, no cyanosis was noted, no clubbing was noted. Neuro: Cranial nerves II through XII are grossly intact, no focal motor deficits were noted, sensation to light touch and pinprick is intact, motor exam 5/5 throughout. Psych: Patient is alert and oriented x3, she does not appear anxious or depressed, she does not appear agitated. Patient was discharged home in stable condition on 11/24/2019.. - Physical Exam Vitals/I&O's: Vital Signs Temp Pulse Resp BP Pulse Ox 98.2 F 73 18 195/88 H 98 11/24/19 12:52 11/24/19 12:52 11/24/19 12:52 11/24/19 12:52 11/24/19 12:52 Oxygen Delivery Method Room Air Weight: 75.1 kg Body Mass Index (BMI) 29.3 Finger Stick Blood Glucose 160 Intake and Output for Last 24 Hours 11/23/19 11/24/19 11/25/19 23:59 23:59 23:59 Intake Total 220 / 220 360 / 360 Balance 220 / 220 360 / 360 Discharge Activity: Return to Normal Activity Home Medications: Medications to take at Discharge Levothyroxine [Synthroid] 125 mcg PO DAILY 07/30/13 Losartan Potassium [Cozaar] 50 mg PO DAILY 07/30/13 Metoprolol(XL)Succ [Toprol Xl (Beta Hilary)] 50 mg PO DAILY 07/30/13 Apixaban [Eliquis] 5 mg PO BID #60 tab 11/24/19 Atorvastatin Calcium [Lipitor] 40 mg PO DAILY #30 tab 11/24/19 Clopidogrel Bisulfate [Plavix] 75 mg PO DAILY #30 tab 11/24/19 Following Prescrptions Were Given to Patient: Apixaban [Eliquis] 5 mg PO BID #60 tab Atorvastatin Calcium [Lipitor] 40 mg PO DAILY #30 tab Clopidogrel Bisulfate [Plavix] 75 mg PO DAILY #30 tab Primary Care Physician: Susie Bryant MD [Primary Care Provider] - Please follow up with your Primary Care Physician in: in the next 7 days Please Follow Up With: Bubba Hairston MD When: as directed Disposition: Home Minutes spent on discharge:: 30 Patient Condition:: Stable Medical Necessity - Tobacco Use Smoking Status: Former smoker Tobacco Use: Non-smoker Meaningful Use Info Meaningful Use Diagnoses (Choose all that apply): Ischemic CVA - CVA Therapy Assessed for PT,OT and/or ST?: Yes - Ischemic Stroke Antithrombotic order at d/c?: Yes Dx of Atrial fib/flutter?: Yes Anticoagulant at discharge?: Yes Statins at discharge?: Yes Primary Dx Acute Ischemic CVA?: Yes IV tPA ordered during stay?: No Reason IV t-PA not ordered: Treatment not Indicated Inpatient E&M: 08693 Subs Hosp L2
== END 2019-11-24 13:08 | disposition home or self-care (01) ==
LOC: ED 15:11 → PCU 15:50
PROVIDERS: Admitting Provider Student in an Organized Health Care Education/Training Program; Emergency Provider Emergency Medicine; PCP Family Medicine; Visit Provider Internal Medicine
DX: I63.89 Other cerebral infarction (principal); I48.91 Unspecified atrial fibrillation; I10 Essential (primary) hypertension; E03.9 Hypothyroidism, unspecified; R29.700 NIHSS score 0; R53.1 Weakness; R32 Unspecified urinary incontinence; Z79.899 Other long term (current) drug therapy; Z79.82 Long term (current) use of aspirin; Z87.891 Personal history of nicotine dependence; R47.81 Slurred speech
CPT/HCPCS: 36415; 70450; 70496; 70498; 70551; 71045; 80048; 80061; 83036; 84443; 84484; 85025; 85610; 85730; 92523; 93005; 93306; 94762; 96374; 96375; 97162; 97166; 97802; 99218; 99285; Q9967; A4216; G0378

== ENCOUNTER 2020-05-20 22:25 | Emergency (ER) | payer MEDICARE, SELFPAY ==
[2019-12-08 12:39] VITALS: BMI 29.7
[2020-05-20 22:25] VITALS: BP 250/103; PULSE 65; RESP 18; TEMP 36; O2SAT 95; BMI 30.8
[2020-05-20 22:33] VITALS: BP 226/74; PULSE 82; RESP 18; O2SAT 97
--- NOTE | 2020-05-20 22:50 | EKG12_ITS ---
Test Reason : GEN ILL Blood Pressure : / mmHG Vent. Rate : 059 BPM Atrial Rate : 111 BPM P-R Int : 000 ms QRS Dur : 082 ms QT Int : 458 ms P-R-T Axes : 000 097 021 degrees QTc Int : 453 ms Atrial fibrillation with slow ventricular response Rightward axis Septal infarct , age undetermined Abnormal ECG Confirmed by ADOLPH VALERA, KENZIE ([id number]), newspaper or periodical editor ZURI COOPER ([id number]) on 05/22/2020 10:29:35 AM Referred By: AUGUSTA Confirmed By:KENZIE FARFAN MD
--- NOTE | 2020-05-20 22:51 | CT_ITS ---
STUDY: CT BRAIN WITHOUT CONTRAST REASON FOR EXAM: Female, 79 years old. INTERMITTENT LUND/ELEV HTN/Hx of TIA 11/2019 RADIATION DOSAGE (If Supplied By Facility): CTDIvol = ( 44.99 ) mGy, DLP = ( 779.24 ) mGycm TECHNIQUE: Transaxial CT imaging of the brain was performed without administration of intravenous contrast material. Individualized dose optimization techniques were used for this CT. COMPARISON: 11/23/2019 FINDINGS: Normal soft tissue structures. Normal calvarium. There is mild cerebral atrophy with widening of the extra-axial spaces and ventricular dilatation. Carotid and vertebral artery calcifications. There are areas of decreased attenuation within the white matter tracts of the supratentorial brain, consistent with microvascular disease changes. Normal basal ganglia and thalami. Normal brainstem. Normal cerebellum. There is no intracranial hemorrhage. There are no findings of an acute ischemic infarction. Normal visualized paranasal sinuses. CT/Brain/Head without Contrast IMPRESSION: Chronic involutional and white matter changes are present. No acute territorial infarct or intracranial hemorrhage is seen. If patient''s symptomology persists or there is continuing clinical concern MRI or follow-up CT scan can be performed. Electronically Signed: Goyo Arrieta, at 23:31 EST Tel , Service support ,
--- NOTE | 2020-05-20 22:52 | ED.VIS.GEN ---
History of Present Illness Chief Complaint: General Illness Informant: Patient Onset: Hours - 2-3 Context: Gradual Onset Timing: Continuous Quality: malaise, nausea Location: generally Current Severity: Mild Maximum Severity: Moderate Worsened by: nothing Relieved by: nothing Associated Symptoms: lightheaded Narrative: Patient has had intermittent blood pressure readings over 200 for the past 2 months or so. She had medication changes 2 days ago, the medicines that she is on were doubled and she is due to go back to her doctor next week for a recheck. These blood pressures were found incidentally. Tonight she felt poorly, lightheaded, nauseated, and just poor. She denies any chest pain, shortness of breath. She notes that her pulse has been irregular off and on for years, she has a known history of A. fib and is on Eliquis, but she denies feeling any palpitations or racing associated with any of the symptoms tonight. She has been having leg swelling for the past 3 weeks which is relatively new for her. She denies any changes in urination. She denies any recent illness. States last time she had an episode like this was when she was here with a stroke, however she had left-sided neurologic deficits at that time. She did not have any residual stroke symptoms/deficits that have persisted. - Past Medical History (1) CVA (cerebral vascular accident) Status: Chronic Comment: Right lacunar infarct (2) Essential (primary) hypertension Status: Chronic (3) Paroxysmal atrial fibrillation Status: Chronic Past Medical History - Allergies and Home Meds Allergies/Adverse Reactions: Allergies No Known Allergies Allergy (Verified 05/20/20 22:30) Primary Care Physician: Susie Bryant MD [Primary Care Provider] - Keep Jennifer appointment Surgical History: no surgical history Smoking Status: Former smoker Review of Systems General: Reports: Malaise. Denies: Chills, Fever, Sweats Eyes: Denies: Visual changes - bilaterally, Diplopia ENT: Reports: - - Ears popping more often than usual. Denies: Rhinorrhea, Sore throat Cardiovascular: Denies: Chest pain, Palpitations Respiratory: Denies: Dyspnea, Cough, Dyspnea on exertion Gastrointestinal: Reports: Nausea. Denies: Abdominal pain, Vomiting, Diarrhea, Melena, Hematochezia Genitourinary: Denies: Dysuria, Hematuria, Frequency Musculoskeletal: Reports: Swelling. Denies: Back pain, Extremity Pain Skin: Denies: Rash, Wounds Neurological: Reports: Headache - not a headache, but a ping-ping in left head off and on this past week, - - No vertigo or disequilibrium.. Denies: Weakness, Numbness Physical Exam Vital Signs/Narrative: Vital Signs Temp Pulse Resp BP Pulse Ox 05/20/20 22:33 82 18 226/74 H 97 05/20/20 22:25 96.8 F L 65 18 250/103 H 95 Inital Vital Signs reviewed: Yes General: Well nourished, Well developed, No Acute Distress Head: Normocephalic, Atraumatic Eyes: Perrl, EOMI ENT: Moist mucous membranes, No rhinorrhea, TM's clear Neck: Supple, Nontender, No JVD Cardiovascular: Regular rate, Regular rhythm, No murmurs Respiratory: No distress, CTA bilaterally, Chest nontender Abdomen: Soft, Nontender, Nondistended, Normal bowel sounds Back: Nontender, Normal Inspection Extremities: Nontender, Edema - 2+ BLE to knees w/o tenderness Skin: Normal color, No rash, No Trauma Neurological: Alert, Oriented x3, Cranial nerves II-XII grossly intact, Normal Strength, Normal Sensation, - - nml FTN and HTS bilat, correct questions; NIHSS - 0 Psychological: Normal affect, Normal Mood Diagnostic/Tx/Re-eval Impressions Brain CT 05/20/20 22:51 IMPRESSION: Chronic involutional and white matter changes are present. No acute territorial infarct or intracranial hemorrhage is seen. If patient''s symptomology persists or there is continuing clinical concern MRI or follow-up CT scan can be performed. Electronically Signed: Goyo Arrieta, at 23:31 EST Tel , Service support , 05/20/20 22:51 CT Head [Brain/Head without Contrast] [CT] Stat Laboratory Tests 05/20/20 05/20/20 05/20/20 Range/Units 23:45 22:30 22:30 WBC 8.0 (4.4-11.0) K/mm3 RBC 5.63 H (4.2-5.4) M/mm3 Hgb 15.2 H (12.0-15.0) g/dL Hct 49.3 H (37-47) % MCV 87.6 (81-99) fL MCH 27.0 (27.0-32.0) pg MCHC 30.8 L (32-36) g/dL RDW Std Deviation 47.9 H (35.1-43.9) fl RDW Coeff of Aiden 14.9 H (11.6-14.6) % Plt Count 274 (150-450) K/mm3 MPV 10.7 (6.2-12.0) fl Immature Gran % (Auto) 1.400 H (0.0-0.9) % Neut % (Auto) 46.1 L (47-70) % Lymph % (Auto) 33.0 (19-41) % [place] % (Auto) 15.7 H (0-10) % Eos % (Auto) 3.4 (0-5) % Baso % (Auto) 0.4 (0-1) % Absolute Neuts (auto) 3.7 (2.0-7.7) X10^3/uL Absolute Lymphs (auto) 2.65 (0.83-4.51) X10^3/uL Nucleated RBC % 0 (0-5) % Sodium 143 (136-145) mmol/L Potassium 3.8 (3.5-5.1) mmol/L Chloride 106 (98-107) mmol/L Carbon Dioxide 31.0 (21.0-32.0) mmol/L Anion Gap 6 (5-15) BUN 18 (7-18) mg/dL Creatinine 1.03 H (0.55-1.02) mg/dL Estim Creat Clear Calc 36.04 ml/min Est GFR (MDRD) Af Amer 66 (>60) mL/min Est GFR (MDRD) Non-Af 55 L (>60) mL/min BUN/Creatinine Ratio 17.5 (10-20) RATIO Glucose 119 H (74-106) mg/dL Calcium 9.3 (8.5-10.1) mg/dL Troponin I < 0.015 (<0.045) ng/mL Urine Color Yellow (Yellow) Urine Clarity Clear (Clear) Urine pH 7.0 (5.0 - 8.0) Ur Specific [place] 1.010 (1.002-1.030) Urine Protein 15 H (Negative) mg/dl Urine Glucose (UA) Normal (Normal) mg/dl Urine Ketones Negative (Negative) mg/dl Urine Occult Blood Negative (Negative) /ul Urine Nitrite Positive H (Negative) Urine Bilirubin Negative (Negative) mg/dL Urine Urobilinogen 8 H (Normal) mg/dl Ur Leukocyte Esterase Negative (Negative) /ul Urine RBC 0 SEEN (0-5) /hpf Urine WBC 0 SEEN (0-5) /hpf Ur Squamous Epith Cells 0-5 SEEN (5-10) /hpf Urine Bacteria 3+ (None Seen) /hpf Urine Mucus 0 SEEN (<or=2+) /hpf - Rhythm Strip Rhythm Strip: A-fib Rate: 59 Ectopy: None - EKG Initial EKG Interpretation: No Acute Injury Pattern, Atrial Fibrillation Prior: Unchanged - Medical Decision Making Work-up shows no signs of endorgan damage, with the mild symptoms she was having in her head, I did a CT scan since her blood pressure was so high in the 250 range and she is anticoagulated. It shows nothing acute. The rest of her work-up is unremarkable. It is certainly possible that she has some mild kidney injury given her mild proteinuria, although her BUN and Cr are ok. The nitrite on the urinalysis I believe is a false positive since she has no pyuria. After reviewing an echocardiogram she had less than 1 year ago that showed no signs of aortic stenosis, we gave her hydralazine 10 mg, her repeat blood pressure is 145/64. Her symptoms resolved he feels much better. Given all of that, I do not think we need to admit her to the hospital. I will add oral hydralazine to her medication regimen that she is currently on, and advised that she follow-up with Dr. Bryant. If she has episodes of syncope or is feeling worse, she is encouraged to return to the ER for reevaluation in the meantime, she is comfortable with that plan. ED Disposition - Plan for ED Patient: Disposition: Home or Assisted Living Diagnosis: Accelerated hypertension, Paroxysmal atrial fibrillation Instructions: ED High Blood Pressure ... Prescriptions: Hydralazine HCl 10 mg PO 4X/DAY #28 tab Prescription Printed Referrals: Susie Bryant MD [Primary Care Provider] - Keep Jennifer appointment
[2020-05-20] MEDS: Ondansetron 4 MG/2 ML Vial IV (22:58)
[2020-05-20] MEDS: hydrALAZINE 20 MG/ML Vial 10 MG IV (22:58)
[2020-05-20 23:18] LABS: Anion Gap 6 (5-15); BUN 18 mg/dL (7-18); BUN/Creat Ratio 17.5 RATIO (10-20); Calcium,Total 9.3 mg/dL (8.5-10.1); Chloride 106 mmol/L (98-107); Creatinine, Serum 1.03 mg/dL (0.55-1.02); EST Glomerular Filtration Rate 55 mL/min (>60); Est Glom Filt Rate - Afr Amer 66 mL/min (>60); Estimated Creatinine Clearance 36.04 ml/min; Glucose 119 mg/dL (74-106); Potassium 3.8 mmol/L (3.5-5.1); Sodium Level 143 mmol/L (136-145)
[2020-05-20 23:23] LABS: Absolute Lymphocyte Count 2.65 X10^3/uL (0.83-4.51); Absolute Neutrophil Count 3.7 X10^3/uL (2.0-7.7); Basophil# 0.03 X10^3/uL; Basophil% 0.4 % (0-1); Eosinophil# 0.27 X10^3/uL; Eosinophils% 3.4 % (0-5); Hematocrit 49.3 % (37-47); Hemoglobin 15.2 g/dL (12.0-15.0); Lymphocyte # 2.65 X10^3/ul (4.0); Mean Corp Hgb Conc 30.8 g/dL (32-36); Mean Corpuscular Volume 87.6 fL (81-99); Mean Platelet Vol. 10.7 fl (6.2-12.0); Monocyte# 1.26 X10^3/uL; Monocyte% 15.7 % (0-10); NRBC Flagged by Analyzer 0 % (0-5); Neutrophil # 3.71 X10^3/uL (2.7-7.7); Neutrophil % 46.1 % (47-70); Platelet Count 274 K/mm3 (150-450); RBC Distribution Width CV 14.9 % (11.6-14.6); RBC Distribution Width SD 47.9 fl (35.1-43.9); Red Blood Count 5.63 M/mm3 (4.2-5.4)
[2020-05-20 23:33] VITALS: BP 145/64; PULSE 64; RESP 18; O2SAT 98
[2020-05-20 23:55] LABS: Mucous, Urine 0 SEEN /hpf (<or=2+); Red Blood Cells-Urine 0 SEEN /hpf (0-5); White Blood Cells 0 SEEN /hpf (0-5)
[2020-05-21] LABS: Color, Urine Yellow (Yellow); Glucose, Dipstick Normal (Normal); Ketone-Dipstick Negative (Negative); Leukocyte Esterase-Dipstick Negative /ul (Negative); Nitrite-Dipstick Positive (Negative); Occult Blood-Urine Negative /ul (Negative); Protein-Dipstick 15 mg/dl (Negative); Urine Bilirubin Dipstick Negative (Negative); Urine Clarity Clear (Clear); Urine Urobilinogen 8 mg/dl (Normal)
[2020-05-21 00:06] LABS: Bacteria 3+ /hpf (None Seen); Squamous Epithelial Cells - UA 0-5 SEEN /hpf (5-10)
[2020-05-21 00:20] VITALS: BP 157/82; PULSE 63; RESP 18; O2SAT 98
== END 2020-05-21 00:22 | disposition home or self-care (01) ==
PROVIDERS: Emergency Provider Emergency Medicine; PCP Family Medicine
DX: I10 Essential (primary) hypertension (principal); I48.0 Paroxysmal atrial fibrillation; M79.89 Other specified soft tissue disorders; Z79.01 Long term (current) use of anticoagulants; Z79.02 Long term (current) use of antithrombotics/antiplatelets; Z79.899 Other long term (current) drug therapy; Z87.891 Personal history of nicotine dependence; Z86.73 Personal history of transient ischemic attack (TIA), and cerebral infarction without residual deficits
CPT/HCPCS: 70450; 80048; 81001; 84484; 85025; 93005; 96374; 96375; 99283; A4216; J2405

== ENCOUNTER → 2020-06-13 11:59 | Outpatient (CLI) | payer MEDICARE, SELFPAY ==
[2020-05-20 22:25] VITALS: BMI 30.8
--- NOTE | 2020-06-13 12:01 | BI_ITS ---
MAMMOGRAPHY - BILATERAL SCREENING REASON FOR EXAM: Female, 79 years old. Routine annual screening examination. PERTINENT HISTORY: Mother with breast cancer. TECHNIQUE: Digital bilateral breast felipe (3D mammographic acquisition) in the CC and MLO projections. 2-D mediolateral oblique (MLO) and craniocaudad (CC) views of both breasts were obtained. CAD: Full Field Digital Mammography with Computer Added Detection was performed. COMPARISON: Comparison is made with prior study dated 05/14/2019 and 04/23/2018. FINDINGS: Breast Composition: The breasts are almost entirely fatty. There are no dominant masses or suspicious calcifications. Stable benign-appearing bilateral axillary lymph nodes. No other significant abnormalities are identified. There has been no significant change since the prior study. BI/SCRN MAMM (CAD)W/FELIPE BILAT IMPRESSION: Stable bilateral screening mammogram. Yearly follow-up mammogram recommended. (A) ASSESSMENT CATEGORY: BIRADS Category 2: Benign. A letter regarding these results will be sent to the patient by the facility within 30 days. Approximately 10% of breast cancers are not detected by mammography. A normal mammogram should not delay biopsy of a clinically suspicious abnormality. [id number] Electronically Signed: Kilo Calabrese MD at 13:01 EST , Service support ,
== END ==
PROVIDERS: PCP Family Medicine; Referring Provider Nurse Practitioner Adult Health; Visit Provider Nurse Practitioner Adult Health
DX: Z12.31 Encounter for screening mammogram for malignant neoplasm of breast (principal)
CPT/HCPCS: 77063; 77067

== ENCOUNTER 2021-08-27 14:19 | Outpatient (CLI) | payer MEDICARE, SELFPAY ==
--- NOTE | 2021-08-27 14:22 | BI_ITS ---
MAMMOGRAPHY - UNILATERAL DIAGNOSTIC: LEFT BREAST REASON FOR EXAM: Female, 81 years old. INCONCLUSIVE MAMM PERTINENT HISTORY: Non-contributory. TECHNIQUE: Digital examination. Mediolateral oblique (MLO) and craniocaudad (CC) views of the breast were obtained. CAD: CAD was not performed on this study. COMPARISON: 08/22/2021 FINDINGS: Breast Composition: There are scattered areas of fibroglandular density. There are no dominant masses or suspicious calcifications. No other significant abnormalities are identified. BI/DIAG MAMM W/CAD, UNILAT IMPRESSION: Stable unilateral diagnostic mammogram. ASSESSMENT CATEGORY: BIRADS Category 1: Negative. A letter regarding these results will be sent to the patient by the facility within 30 days. FOLLOW-UP RECOMMENDATION: Yearly follow-up mammogram recommended. (A) Approximately 10% of breast cancers are not detected by mammography. A normal mammogram should not delay biopsy of a clinically suspicious abnormality. Electronically Signed: Anjum Melton MD at 15:01 EDT ,
== END 2021-08-27 23:59 | disposition home or self-care (01) ==
PROVIDERS: PCP Registered Nurse; Visit Provider Registered Nurse
DX: R92.2 Inconclusive mammogram (principal)
CPT/HCPCS: 77065

== ENCOUNTER → 2023-06-18 | Outpatient (CLI) | payer MEDICARE, SELFPAY ==
--- NOTE | 2023-06-18 11:02 | CDU_ITS ---
Reason For Study: Retinal vein occlusion Rt. Velocities/BP Lt. Velocities/BP Prox CCA 70.2/8.8 cm/sec. Prox CCA 64.5/12.6 cm/sec. Mid CCA 62.6/8.8 cm/sec. Mid CCA 64.5/11.6 cm/sec. Dist CCA 60.7/11.6 cm/sec. Dist CCA 65.5/13.5 cm/sec. Prox ICA 62.6/11.6 cm/sec. Prox ICA 62.6/8.8 cm/sec. Mid ICA 92.7/23.4 cm/sec. Mid ICA 77.3/11.3 cm/sec. Dist ICA 87.2/16.8 cm/sec. Dist ICA 91/18.8 cm/sec. Rt. ICA/CCA = 1.48. Lt. ICA/CCA = 1.41. Prox ECA 55.1/3.1 cm/sec. Prox ECA 62.6/3.1 cm/sec. Rt. Vert. 42.8/8.8 cm/sec. Lt. Vert. 53.2/12.6 cm/sec. Right Extracranial There is intimal thickening but no significant atherosclerotic plaque noted in the right common carotid artery. There is heterogeneous, irregular atherosclerotic plaque noted in the right internal carotid artery. There is intimal thickening but no significant atherosclerotic plaque noted in the right external carotid artery. Antegrade flow is noted in the right vertebral artery. Left Extracranial There is intimal thickening but no significant atherosclerotic plaque noted in the left common carotid artery. There is heterogeneous, irregular atherosclerotic plaque noted in the left internal carotid artery. The left internal carotid artery is very tortuous. There is intimal thickening but no significant atherosclerotic plaque noted in the left external carotid artery. Antegrade flow is noted in the left vertebral artery. Procedure Carotid Duplex [id number]. This is a Carotid Duplex examination using B-mode, color flow and specral Doppler. Exam performed in department. VL/Carotid Duplex Ultrasound Interpretation Summary Irregular calcific plaque at the proximal right internal carotid artery with le ss than 50% stenosis Less than 50% stenosis right external carotid artery Irregular calcific plaque of the proximal left internal carotid artery with tor tuosity of the left proximal and mid internal carotid. Less than 50% stenosis left internal carotid artery Less than 50% stenosis left external carotid artery Patent and antegrade vertebral arteries bilaterally There is no progression of stenosis from a remote examination of August 24, 2009 Ordering Physician: Vladislav Miranda Referring Physician: Deonna Humphrey Performed By: Roxane Lopez RVT
== END | disposition home or self-care (01) ==
LOC: CVS 11:00
PROVIDERS: PCP Registered Nurse; Referring Provider Ophthalmology; Visit Provider Ophthalmology
DX: H34.8310 Tributary (branch) retinal vein occlusion, right eye, with macular edema (principal); H35.62 Retinal hemorrhage, left eye
CPT/HCPCS: 93880

== ENCOUNTER → 2024-04-06 | Outpatient (CLI) | payer MEDICARE, SELFPAY ==
--- NOTE | 2024-04-06 12:57 | VDLE_ITS ---
Reason For Study: SWELLING RIGHT LEFT GSV is normal. CFV is compressible, spontaneous, competent, CFV is compressible, spontaneous, competent and demonstrates pulsatile venous flow. and demonstrates pulsatile venous flow. FV is compressible, spontaneous, competent and demonstrates pulsatile venous flow. POP V is compressible, spontaneous, competent and demonstrates pulsatile venous flow. T/P Trunk is compressible. PTV is compressible. RT PerV is compressible. Procedure This is a venous duplex using B-mode, color flow and spectral Doppler. Exam performed in department. A preliminary report was called and/or faxed to Maritza uHmphrey NP-C @ [phone] @ 13:15. VL/Venous Duplex US, Unilateral Interpretation Summary Deep veins of the right lower extremity are patent and compressible segmentally . There is no evidence of right lower extremity deep vein thrombosis. Valvular competence amairani ears intact within the proximal deep venous system on the right . The right great saphenous vein a ppears patent and compressible segmentally. The left common femoral vein is patent and compressib le . Pulsatile flow is noted in the deep venous system bilaterally, which may be indicative of elev ated central venous pressure (i.e. congestive heart failure, pulmonary hypertension, etc.). Clinica l correlation is advised. Ordering Physician: Deonna Humphrey Referring Physician: Deonna Humphrey Performed By: Kym Castle, HARESH, RVT
== END | disposition home or self-care (01) ==
LOC: CVS 12:51
PROVIDERS: PCP Registered Nurse; Referring Provider Registered Nurse; Visit Provider Registered Nurse
DX: R22.41 Localized swelling, mass and lump, right lower limb (principal)
CPT/HCPCS: 93971